=== PATIENT | female | born 1925 | race Caucasian/White ===

== ENCOUNTER 2016-08-18 10:30 | Emergency (ER) | payer OTHER ==
[~2016-08-18] VITALS: Ht 170.2 cm; Wt 74.8 kg
[~2016-08-18 10:30] MED LIST: CHOL2000 PO; LEVO75TA5 PO; MULT-190 PO; SIMV-151 PO
[2016-08-18 10:44] VITALS: TEMP 36.7; Ht 170.2 cm; Wt 74.8 kg
[2016-08-18] MEDS ORDERED: ACETAMINOPHEN 500 MG TAB PO STA (11:21)
--- NOTE | 2016-08-18 11:25 | EMERGENCY ROOM VISIT NOTE ---
History Report prepared by Sarabjit: Yelena Xie Under the Supervision of: Dr. Alberto Frazier M.D. First contact with patient: 11:18 Chief Complaint: HIP PAIN Stated Complaint: PAIN IN RIGHT HIP History of Present Illness The patient is an 89 year old female who presents to the Emergency Room with complaints of persistent right hip pain that began three days ago. She currently rates her discomfort as an 7-8/10 in severity. The patient denies any fall or trauma recently to cause the pain. She notes increased pain with movement and walking. The patient reports normal urination. She notes that the pain radiates from her right hip down her right leg. The patient denies any fever, back pain, or swelling to her bilateral legs. She denies any history of sciatica. The patient states that she has taken Aleve without relief of her symptoms, and denies taking any Tylenol today. She denies using a walker or cane to assist with ambulation. She denies ever seeing an orthopedist in the past. Source of History: patient Onset: Three days ago Position: other (right hip) Symptom Intensity: 7-8/10 Timing: other (persistent) Modifying Factors (Worsening): movement (walking) Associated Symptoms: No back pain, No fevers Note: Associated Symptoms: radiating down right leg Review of Systems See HPI for pertinent positives & negatives. A total of 10 systems reviewed and were otherwise negative. Past Medical & Surgical Medical Problems: (1) Bronchitis (2) Pneumonia Family History No pertinent family history Social History Smoking Status: Never Smoker Marital Status: Housing Status: lives alone Occupation Status: retired Current/Historical Medications Scheduled Cholecalciferol (Vitamin D3), 2,000 INTER.UNIT PO DAILY Levothyroxine Sodium (Levothyroxine Sodium), 75 MCG PO DAILY Ocuvite Preservision (Ocuvite Preservision), 1 TAB PO DAILY Simvastatin (Simvastatin), 20 MG PO HS Allergies Coded Allergies: No Known Allergies (Unverified , 09/03/12) Physical Exam Vital Signs Date Time Temp Pulse Resp B/P Pulse Ox O2 Delivery O2 Flow Rate FiO2 08/18/16 12:58 57 18 147/62 95 08/18/16 10:44 36.7 63 18 195/76 97 Physical Exam GENERAL: Patient is in no acute distress. HEENT: No acute trauma, normocephalic atraumatic, mucous membranes moist, no nasal congestion, no scleral icterus. NECK: No stridor, no adenopathy, no meningismus, trachea is midline. LUNGS: Clear to auscultation bilaterally, no wheeze, no rhonchi, breath sounds equal. HEART: Without murmurs gallops or rubs, regular rate and rhythm. ABDOMEN: Soft, nontender, bowel sounds positive, no hernias, no peritonitis. EXTREMITIES: No edema or cellulitis to lower extremities. Some pain to palpate right lateral hip. No erythema. NEUROLOGIC: Oriented x 3, no acute motor or sensory deficits, no focal weakness. SKIN: No rash, no jaundice, no diaphoresis. Medical Decision & Procedures ER Provider Diagnostic Interpretation: X-ray results as stated below per interpretation by me and the radiologist: PELVIS 1 OR 2 VIEW ROUTINE, RIGHT HIP UNILATERAL 2 VIEWS CLINICAL HISTORY: Right hip pain. COMPARISON STUDY: None. FINDINGS: No fracture or dislocation within the pelvis or hips. The sacrum appears intact. Moderate osteoarthritis within the bilateral hips. Soft tissues are unremarkable. IMPRESSION: No fracture or dislocation within the pelvis or hips. Moderate bilateral hip osteoarthritis. Electronically signed by: Aubrey Bryson M.D. 08/18/2016 12:41 PM Dictated Date/Time: 08/18/2016 12:39 PM LUMBAR SPINE 5 VIEWS HISTORY: Neck pain. pain, down r leg COMPARISON: None. FINDINGS: There is no fracture. No subluxation. Mild osteoarthritis within the lower facets. Disc spaces are relatively preserved for age. IMPRESSION: No fracture or subluxation within the lumbar spine. Electronically signed by: Aubrey Bryson M.D. 08/18/2016 12:43 PM Dictated Date/Time: 08/18/2016 12:41 PM PELVIS 1 OR 2 VIEW ROUTINE, RIGHT HIP UNILATERAL 2 VIEWS CLINICAL HISTORY: Right hip pain. COMPARISON STUDY: None. FINDINGS: No fracture or dislocation within the pelvis or hips. The sacrum appears intact. Moderate osteoarthritis within the bilateral hips. Soft tissues are unremarkable. IMPRESSION: No fracture or dislocation within the pelvis or hips. Moderate bilateral hip osteoarthritis. Electronically signed by: Aubrey Bryson M.D. 08/18/2016 12:41 PM Dictated Date/Time: 08/18/2016 12:39 PM Medications Administered Medications (Trade) Dose Ordered Sig/Rossy Route Start Time Stop Time Status Last Admin Dose Admin Acetaminophen (Tylenol Tab) 1,000 mg NOW STAT PO 08/18/16 11:21 08/18/16 11:23 DC 08/18/16 11:38 1,000 MG ED Course 1119: The patient was evaluated in room C10. A complete history and physical exam was performed. 1121: Ordered Tylenol Tab 1000 mg PO. 1305: I reevaluated the patient and she is doing well. I discussed the exam findings with her and I discussed the treatment plan. She verbalized complete understanding and agreement. She is ready to go home. Medical Decision The patient is an 89 year old female who presents to the ED with complaints of right hip pain. Differential diagnoses considered include sciatica, nerve impingement, bursitis, arthritis, fracture, lumbar disc disease, cellulitis. The patient presents with some right hip pain, especially to walk. She has not fallen. There is no evidence for cellulitis, she was not toxic. Her right leg was not swollen. Films of the lumbar spine show no significant arthritis or bony malalignment. The right hip film shows evidence for arthritis, there was no fracture. The patient likely is having pain from arthritis. She was given some oral Tylenol here in our ER. She is being discharged with a walker. Rest was encouraged, she will follow with orthopedics and return here for worsening symptoms. Impression Primary Impression: Right hip pain Scribe Attestation The scribe's documentation has been prepared under my direction and personally reviewed by me in its entirety. I confirm that the note above accurately reflects all work, treatment, procedures, and medical decision making performed by me. Departure Information Dispostion Home / Self-Care Referrals Dilia Perez C.R.N.P. (PCP) Forms HOME CARE DOCUMENTATION FORM, IMPORTANT VISIT INFORMATION Patient Instructions My [facility] Additional Instructions talk with orthopedics tomorrow for an appt this week use ice to the hip to help with inflamation stay off of the leg--rest use walker to help with getting around continue aleve 2x per day for 5 days use tylenol every 4 hours for additional pain control films today showed arthritris
--- NOTE | 2016-08-18 12:42 | DIAGNOSTIC IMAGING REPORT ---
PELVIS 1 OR 2 VIEW ROUTINE, RIGHT HIP UNILATERAL 2 VIEWS CLINICAL HISTORY: Right hip pain. COMPARISON STUDY: None. FINDINGS: No fracture or dislocation within the pelvis or hips. The sacrum appears intact. Moderate osteoarthritis within the bilateral hips. Soft tissues are unremarkable. IMPRESSION: No fracture or dislocation within the pelvis or hips. Moderate bilateral hip osteoarthritis. Electronically signed by: Aubrey Bryson M.D. 08/18/2016 12:41 PM Dictated Date/Time: 08/18/2016 12:39 PM
--- NOTE | 2016-08-18 12:44 | DIAGNOSTIC IMAGING REPORT ---
LUMBAR SPINE 5 VIEWS HISTORY: Neck pain. pain, down r leg COMPARISON: None. FINDINGS: There is no fracture. No subluxation. Mild osteoarthritis within the lower facets. Disc spaces are relatively preserved for age. IMPRESSION: No fracture or subluxation within the lumbar spine. Electronically signed by: Aubrey Bryson M.D. 08/18/2016 12:43 PM Dictated Date/Time: 08/18/2016 12:41 PM
[2016-08-18 12:58] VITALS: BP 147/62; PULSE 57; O2SAT 95
== END 2016-08-18 13:20 | disposition home or self-care (01) ==
LOC: C.EDB 10:33 → C.EDC 13:20
DX: M25.551 Pain in right hip (principal); Z79.899 Other long term (current) drug therapy

== ENCOUNTER → 2016-08-23 | Outpatient (CLI) | payer OTHER | END | disposition home or self-care (01) | LOC: C.RDSM 14:10 | PROVIDERS: ATTEND Family Medicine Sports Medicine | DX: M25.569 Pain in unspecified knee (principal) ==

== ENCOUNTER → 2016-11-06 | Outpatient (CLI) | payer OTHER ==
[2016-11-06 12:43] LABS: ESTIMATED AVERAGE GLUCOSE 140 mg/dl; HA1C FLAG Normal (Normal)
[2016-11-06 12:57] LABS: CALCIUM 9.7 mg/dl (8.5-10.1)
[2016-11-06 12:58] LABS: ALT/SGPT 23 U/L (12-78); AST/SGOT 22 U/L (15-37); BLOOD UREA NITROGEN 22 mg/dl (7-18); BUN/CREATININE RATIO 21.9 (10-20); CARBON DIOXIDE 29 mmol/L (21-32); CHLORIDE 104 mmol/L (98-107); CHOLESTEROL 180 mg/dl (0-200); CREATININE 0.98 mg/dl (0.60-1.20); GLUCOSE 113 mg/dl (70-99); POTASSIUM 4.3 mmol/L (3.5-5.1); SODIUM 141 mmol/L (136-145); TRIGLYCERIDES 132 mg/dl (0-150); VERY LOW DENSITY LIPOPROT CALC 26 mg/dl
[2016-11-06 13:08] LABS: ALB/GLOB RATIO 1.3 (0.9-2); ALKALINE PHOSPHATASE 48 U/L (45-117); CHOLESTEROL/HDL RATIO 2.5; HDL CHOLESTEROL 72 mg/dl; LDL CHOLESTEROL CALCULATED 82 mg/dl
== END | disposition home or self-care (01) ==
LOC: C.LABBFT 10:53
PROVIDERS: ATTEND Nurse Practitioner
DX: E11.9 Type 2 diabetes mellitus without complications (principal)